=== PATIENT | female | born 1945 | race Caucasian/White ===

== ENCOUNTER 2018-10-06 21:02 | Emergency (ER) | payer MEDICARE, OTHER, SELFPAY ==
[2018-10-06 21:05] VITALS: BP 169/95; PULSE 79; RESP 14; TEMP 35.8; O2SAT 97; BMI 32.6
--- NOTE | 2018-10-06 22:20 | ED.RN ---
PT CAME TO ED TODAY WITH COMPLAINT OF ROSE TOE PAIN ON ALL TOES. PT DESCRIBES PAIN ACHING WITH LOSS OF SENSATION AT THE TIPS OF THE TOES.
--- NOTE | 2018-10-06 23:04 | RAD_ITS ---
STUDY: X-RAY - RIGHT FOOT CLINICAL: Female, 72 years old. Pain. TECHNIQUE: 3 view(s) of the foot. COMPARISON: None. FINDINGS: Normal talus, calcaneus, and tarsal bones. Normal visualized subtalar, talonavicular, calcaneocuboid, tarsal and tarsometatarsal articulations. Normal metatarsi. Normal metatarsophalangeal joint of the great toe. Normal tibial and fibular sesamoid bones. Normal interphalangeal joint of the great toe. Normal phalanges of the great toe. Normal second through fifth metatarsophalangeal joints. Normal interphalangeal joints and phalanges of the lesser toes. The soft tissue structures are unremarkable. RAD/Foot min 3 Views IMPRESSION: Normal x-ray examination of the foot. Electronically Signed: Andrew Regalado DO at 23:51 EDT Tel [phone], Service support ,
[2018-10-06] MEDS: oxyCODONE 5 MG Tablet PO (23:12)
--- NOTE | 2018-10-06 23:30 | RAD_ITS ---
STUDY: X-RAY - LEFT FOOT CLINICAL: Female, 72 years old. Pain TECHNIQUE: 3 view(s) of the foot. COMPARISON: None. FINDINGS: Normal talus, calcaneus, and tarsal bones. Normal visualized subtalar, talonavicular, calcaneocuboid, tarsal and tarsometatarsal articulations. Normal metatarsi. Normal metatarsophalangeal joint of the great toe. Normal tibial and fibular sesamoid bones. Normal interphalangeal joint of the great toe. Normal phalanges of the great toe. Normal second through fifth metatarsophalangeal joints. Normal interphalangeal joints and phalanges of the lesser toes. The soft tissue structures are unremarkable. RAD/Foot min 3 Views IMPRESSION: Normal x-ray examination of the foot. Electronically Signed: Kurtis Doyle MD at 23:51 EDT Tel , Service support ,
--- NOTE | 2018-10-06 23:54 | ED.DCSUM_ITS ---
- ER Visit Summary Date of Service: 10/06/18 Chief Complaint: Bilateral foot pain History of Present Illness: The patient is a 72 F who presents with bilateral foot pain. This is been occurring for the past 3 months. However she states it reached a point where she could not wait any longer. She describes it as aching in all of her toes. She has also noticed some redness. She states at times the tips of her toes will peel. She also complains of numbness. She also complains of back pain but has a history of chronic back pain. She notes that when she was put on prednisone for her lower back pain her toes also improved. She denies fevers chest pain shortness of breath abdominal pain. She denies trauma or injury. She does have a history of Raynauds but states this is different. Physical Examination: Blood pressure 169/95 vitals otherwise unremarkable Moist mucous membranes Heart regular rate and rhythm Lungs are clear Abdomen soft nontender Patient has erythema of all of the toes feet ankle and legs appear normal she has no real visible foot ankle or calf tenderness I am unable to easily palpate distal pulses however she has triphasic flow of the right posterior tibial, biphasic flow at the left posterior tibial and dorsalis pedis Capillary refill is about 2 seconds No open wounds no necrosis No soft tissue swelling or edema Test Results: CBC, BMP, ESR, CRP all normal. Bilateral foot x-rays are normal. Emergency Department Course and Treatment: Given exam findings and reported improvement with prednisone process such as vasculitis was considered on the differential. Inflammatory markers are normal. Pain could also be related to neuropathy. May be due to peripheral vascular disease but she does not have any evidence of acute limb ischemia. This does not appear to be related to inf ectious process. She has had chronic symptoms for 3 months. We will refer to podiatry for further evaluation. She understands to return for new or worsening symptoms. She was given oxycodone here for pain. She will be given a prescription for short course of analgesics. She is in agreement with this plan was discharged home. Treatment Plan: [] Disposition: Discharge Impression: Pain bilateral toes This note was generated with [employer] dictation software. It may contain incorrect words, spelling, and punctuation that were not noted in review of the chart prior to signing ED Disposition - Plan for ED Patient: Referrals: Kwesi Arevalo MD [Primary Care Provider] -
[2018-10-06 23:57] LABS: Anion Gap 8 (5-15); BUN 11 mg/dL (7-18); BUN/Creat Ratio 15.2 RATIO (10-20); CRP < 2.90 mg/L (0.0-3.0); Calcium,Total 9.2 mg/dL (8.5-10.1); Chloride 109 mmol/L (98-107); Creatinine, Serum 0.73 mg/dL (0.55-1.02); EST Glomerular Filtration Rate 83 mL/min (>60); Est Glom Filt Rate - Afr Amer 101 mL/min (>60); Estimated Creatinine Clearance 41.45 ml/min; Glucose 101 mg/dL (74-106); Potassium 3.4 mmol/L (3.5-5.1); Sodium Level 143 mmol/L (136-145)
[2018-10-06 23:59] LABS: Absolute Neutrophil Count 4.5 X10^3/uL (2.0-7.7); Basophil# 0.09 X10^3/uL; Basophil% 1.1 % (0-1); Eosinophil# 0.17 X10^3/uL; Hematocrit 41.3 % (37-47); Hemoglobin 13.2 g/dl (12.0-15.0); Lymphocyte % 29.9 % (19-41); Mean Corpuscular Hgb 27.2 pg (27.0-32.0); Mean Corpuscular Volume 85.2 fL (81-99); Mean Platelet Vol. 9.3 fl (6.2-12.0); Monocyte# 1.11 X10^3/uL; Monocyte% 13.3 % (0-10); Neutrophil # 4.48 X10^3/uL (2.7-7.7); Neutrophil % 53.5 % (47-70); POSITIVE COUNT NO; POSITIVE DIFFERENTIAL NO; POSITIVE MORPHOLOGY NO; Platelet Count 331 K/mm3 (150-450); RBC Distribution Width CV 13.3 % (11.6-14.6); RBC Distribution Width SD 41.1 fl (35.1-43.9); Red Blood Count 4.85 M/mm3 (4.2-5.4); White Blood Count 8.4 K/mm3 (4.4-11.0)
[2018-10-07 00:05] LABS: Erythrocyte Sedimentation Rate 26 mm/hr (0-30)
[2018-10-07 00:13] VITALS: BP 178/84; PULSE 62; RESP 18; O2SAT 96
--- NOTE | 2018-10-07 00:20 | ED.DEP ---
ED Disposition - Plan for ED Patient: Prescriptions: Oxycodone HCl/Acetaminophen [Percocet 5/325] 1 tab PO Q6H PRN PRN 3 Days #12 tab PRN Reason: Pain Referrals: Kwesi Arevalo MD [Primary Care Provider] - Shirley Dexter DPM [STAFF PHYSICIAN] -
== END 2018-10-07 00:30 | disposition home or self-care (01) ==
LOC: ED 23:09
PROVIDERS: Emergency Provider Emergency Medicine; Family Provider Internal Medicine; PCP Internal Medicine
DX: M79.674 Pain in right toe(s) (principal); M79.675 Pain in left toe(s)
CPT/HCPCS: 36415; 73630; 80048; 85025; 85652; 86140; 99283

== ENCOUNTER → 2020-01-19 10:33 | Outpatient (CLI) | payer MEDICARE, OTHER, SELFPAY | PROVIDERS: PCP Internal Medicine; Referring Provider Nurse Practitioner; Visit Provider Nurse Practitioner | DX: Z20.828 Contact with and (suspected) exposure to other viral communicable diseases (principal); R50.9 Fever, unspecified; R11.0 Nausea; R06.02 Shortness of breath; I10 Essential (primary) hypertension | CPT/HCPCS: 87635; G2023; U0003 ==

== ENCOUNTER 2020-09-14 11:27 | Outpatient (RCR) | payer MEDICARE, OTHER, SELFPAY ==
[2020-09-14] MEDS: COVID-19 VACC, MRNA(PFIZER)/PF 30 MCG/0.3 ML SYRINGE IM (11:00)
[2020-10-05] MEDS: COVID-19 VACC, MRNA(PFIZER)/PF 30 MCG/0.3 ML SYRINGE IM (11:12)
== END 2020-12-12 23:59 ==
LOC: IMMUN 11:27
PROVIDERS: PCP Internal Medicine; Referring Provider Family Medicine; Visit Provider Family Medicine
DX: Z23 Encounter for immunization (principal)
CPT/HCPCS: 0001A; 0002A; 91300